=== PATIENT | female | born 1950 | race Caucasian/White ===

== ENCOUNTER 2019-03-02 21:10 | Emergency (ER) | payer MEDICARE, OTHER ==
[2019-03-02] MEDS ORDERED: Albuterol/Ipratropium 3.0-0.5 MG/3 ML Neb Soln NEB ONE (21:36)
[2019-03-02 22:10] LABS: CARBON DIOXIDE,CO2 28.6 mmol/L (21.0-32.0); POTASSIUM,K 2.9 mmol/L (3.5-5.1)
[2019-03-02] MEDS ORDERED: cefTRIAXone 1 GM in Premix Bag 1 BAG IV ONE (22:29)
[2019-03-02] MEDS ORDERED: methylPREDNISolone Sodium Succinate 125 MG/2 ML SDV IVPUSH ONE (22:29)
[2019-03-02] MEDS ORDERED: Sodium Chloride 0.9% 1,000 ML IV ONE (22:29)
[2019-03-02] MEDS ORDERED: Ondansetron 4 MG/2 ML SDV IVPUSH ONE (22:30)
[2019-03-02] MEDS ORDERED: Potassium Chloride Riders 20 MEQ in Premix Bag 1 BAG IV ONE (22:32)
--- NOTE | 2019-03-02 22:50 | CR ---
INDICATION: For 3 days. COMPARISON: None available. FINDINGS: PA and lateral views of the chest were obtained. The lungs are clear. No focal or diffuse infiltrates are present. The heart is normal in size. The mediastinum is normal in appearance. There is mild anterior wedging of the T12 vertebral body consistent with an old mild compression fracture. There is minimal scoliosis of the inferior thoracic spine convex towards the left. Incidental note is made of a mild pectus excavatum deformity. IMPRESSION: No active disease seen in the chest. Dictated by Arron Dasilva MD @ Mar 02 2019 10:47PM Signed by Dr. Arron Dasilva @ Mar 02 2019 10:48PM
--- NOTE | 2019-03-02 22:54 | EDM.PDOC ---
ED HPI GENERAL MEDICAL PROBLEM - General Chief Complaint: General Stated Complaint: COUGH Time Seen by Provider: 03/02/19 21:24 Source of Information: Reports: Patient History Limitations: Reports: No Limitations - History of Present Illness INITIAL COMMENTS - FREE TEXT/NARRATIVE: HISTORY AND PHYSICAL: History of present illness: Patient is a 68-year-old female who presents to the ED today with concern of cough, malaise, nausea x 3 days. Patient states initially about a week ago she had nasal congestion which she feels has now moved down to her lungs. Patient states she does smoke about a pack a day and has so for 50-60 years. Patient states starting today she had noticed a increase in how tired she is alongside the cough. Patient states she has felt like she's had some fevers at home but has not checked her temperature. Patient states she has not been able to eat and drink per her usual since the onset of the cough as she has also had associative nausea with it. Patient states she also has chronic issues with urinary tract infection and noticed a few days ago she was also developing some burning with urination an increase in urinary frequency which is typical of her frequent UTI symptoms. Patient denies any back pain. Patient has a history of htn, frequent UTI, and osteoarthritis but denies any other health history. Patient denies chills, chest pain, shortness of breath. Denies headache, neck stiff ness, change in vision, syncope, or near syncope. Denies vomiting, abdominal pain, diarrhea, constipation. Has not noted any blood in urine or stool. Review of systems: As per history of present illness and below otherwise all systems reviewed and negative. Past medical history: As per history of present illness and as reviewed below otherwise noncontributory. Surgical history: As per history of present illness and as reviewed below otherwise noncontributory. Social history: See social history for further information Family history: As per history of present illness and as reviewed below otherwise noncontributory. Physical exam: General: Patient is alert, oriented, and in no acute distress. Patient laying comfortably on exam table and moderately tired appearing. HEENT: Atraumatic, normocephalic, pupils equal and reactive bilaterally, negative for conjunctival pallor or scleral icterus, mucous membranes dry, TMs normal bilaterally, throat clear, neck supple, nontender, trachea midline. No drooling or trismus noted. No meningeal signs. No hot potato voice noted. Lungs: Wheezing to auscultation of bilateral lung bases, breath sounds equal bilaterally, chest nontender. Paroxysmal dry cough illicit on exam. Heart: S1S2, regular rate and rhythm with grade 2-3 systolic ejection murmur best heard at the LUSB. Abdomen: Soft, nondistended, nontender. Negative for masses or hepatosplenomegaly. Negative for costovertebral tenderness. Pelvis: Stable nontender. Genitourinary: Deferred. Rectal: Deferred. Skin: Intact, warm, dry. No lesions or rashes noted. Extremities: Atraumatic, negative for cords or calf pain. Neurovascular unremarkable. Neuro: Awake, alert, oriented. Cranial nerves II through XII unremarkable. Cerebellum unremarkable. Motor and sensory unremarkable throughout. Exam nonfocal. Notes: Offered admission for observation but patient declines at this time. Patient does get nausea when taking antibiotics so will give zofran. Although never formally diagnosed with COPD, she does appear to have clinical signs of COPD on exam. Will treat for urinary tract infection as well as COPD. Will get a week's worth supply of potassium and discussed with patient the need to follow -up with the primary care in order to have this further evaluated. Discussed other lab findings with patient and need for follow up with primary care provider. Voices understanding and is agreeable to plan of care. Denies any further questions or concerns at this time. Diagnostics: CBC, CMP, UA, EKG, CXR 2 view, urine culture Therapeutics: NS, Duoneb, Rocephin, Solumedrol, K-rider Prescription: Zofran, Macrobid, Medrol dose pack, ProAir inhaler, Zpack, Potassium Impression: COPD exacerbation Urinary Tract Infection Hypokalemia Dehydration Elevated renal function tests Plan: 1. Take medications as prescribed. You can alternate ibuprofen and Tylenol as directed for pain and discomfort. 2. Follow-up with your primary care provider for follow up labwork as discussed. Return to the ED as needed and as discussed. Definitive disposition and diagnosis as appropriate pending reevaluation and review of above. chest;head Pain Score (Numeric/FACES): 5 - Related Data Allergies Allergy/AdvReac Type Severity Reaction Status Date / Time Penicillins Allergy Cannot Verified 03/02/19 21:30 Remember Home Meds: Home Meds Chlorthalidone 1 tab PO DAILY 03/02/19 [History] Desvenlafaxine [Desvenlafaxine ER] 1 tab PO DAILY 03/02/19 [History] Diltiazem [Dilacor XR] 1 cap PO DAILY 03/02/19 [History] Gabapentin [Neurontin] 1 tab PO TID 03/02/19 [History] Losartan [Cozaar] 1 tab PO DAILY 03/02/19 [History] atorvaSTATin [Lipitor] 1 tab PO BEDTIME 03/02/19 [History] Past Medical History Cardiovascular History: Reports: High Cholesterol, Hypertension [employer] History: Reports: Psychiatric History: Reports: Anxiety, Depression - Past Surgical History Neurological Surgical History: Reports: Other (See Below) Other Neurological Surgeries/Procedures: brain sx Musculoskeletal Surgical History: Reports: Hip Replacement Social & Family History - Family History Family Medical History: Noncontributory - Tobacco Use Smoking Status *Q: Current Every Day Smoker Years of Tobacco use: 30 Packs/Tins Daily: 1 - Recreational Drug Use Recreational Drug Use: No ED ROS GENERAL - Review of Systems Review Of Systems: ROS reveals no pertinent complaints other than HPI. ED EXAM, GENERAL - Physical Exam Exam: See Below (See dictation) Course - Vital Signs Last Recorded V/S: Last Vital Signs Temp 35.9 C 03/02/19 21:20 Pulse 110 H 03/02/19 21:20 Resp 18 03/02/19 21:20 BP 124/67 03/02/19 21:20 Pulse Ox 94 L 03/02/19 21:20 - Orders/Labs/Meds Orders: Active Orders 24 hr Category Date Time Status EKG Documentation Completion [RC] STAT Care 03/02/19 21:36 Active RT Aerosol Therapy [RC] ASDIRECTED Care 03/02/19 21:36 Active CULTURE URINE [RM] Stat Lab 03/02/19 21:37 Received UA W/MICROSCOPIC [URIN] Stat Lab 03/02/19 21:37 Results Potassium Chloride Riders [KCL 20 MEQ in Water 50 ML] Med 03/02/19 22:32 Active 20 meq Premix Bag 1 bag IV ONETIME Medication Orders Potassium Chloride 20 meq/ (Premix) 50 mls @ 25 mls/hr IV ONETIME ONE Stop: 03/03/19 00:31 Last Admin: 03/02/19 22:59 Dose: 25 mls/hr Labs: Laboratory Tests 03/02/19 03/02/19 03/02/19 Range/Units 21:37 21:41 21:41 WBC 11.10 H (4.0-11.0) K/uL RBC 3.90 L (4.30-5.90) M/uL Hgb 12.5 (12.0-16.0) g/dL Hct 36.2 (36.0-46.0) % MCV 92.8 (80.0-98.0) fL MCH 32.1 H (27.0-32.0) pg MCHC 34.5 (31.0-37.0) g/dL RDW Std Deviation 42.4 (28.0-62.0) fl RDW Coeff of [place] 13 (11.0-15.0) % Plt Count 315 (150-400) K/uL MPV 8.40 (7.40-12.00) fL Neut % (Auto) 70.2 (48.0-80.0) % Lymph % (Auto) 18.2 (16.0-40.0) % [place] % (Auto) 9.4 (0.0-15.0) % Eos % (Auto) 2.0 (0.0-7.0) % Baso % (Auto) 0.2 (0.0-1.5) % Neut # (Auto) 7.8 H (1.4-5.7) K/uL Lymph # (Auto) 2.0 (0.6-2.4) K/uL [place] # (Auto) 1.0 H (0.0-0.8) K/uL Eos # (Auto) 0.2 (0.0-0.7) K/uL Baso # (Auto) 0.0 (0.0-0.1) K/uL Sodium 135 L (136-145) mmol/L Potassium 2.9 L (3.5-5.1) mmol/L Chloride 98 (98-107) mmol/L Carbon Dioxide 28.6 (21.0-32.0) mmol/L BUN 22 H (7.0-18.0) mg/dL Creatinine 1.2 H (0.6-1.0) mg/dL Est Cr Clr Drug Dosing 37.67 mL/min Estimated GFR (MDRD) 44.4 ml/min Glucose 130 H (74-106) mg/dL Calcium 9.4 (8.5-10.1) mg/dL Total Bilirubin 0.4 (0.2-1.0) mg/dL AST 19 (15-37) IU/L ALT 27 (14-63) IU/L Alkaline Phosphatase 94 (46-116) U/L Total Protein 7.3 (6.4-8.2) g/dL Albumin 3.4 (3.4-5.0) g/dL Globulin 3.9 (2.6-4.0) g/dL Albumin/Globulin Ratio 0.9 (0.9-1.6) Urine Color DARK YELLOW Urine Appearance SLT CLOUDY Urine pH 6.5 (5.0-8.0) Ur Specific [place] 1.015 (1.001-1.035) Urine Protein 30 H (NEGATIVE) mg/dL Urine Glucose (UA) 100 H (NEGATIVE) mg/dL Urine Ketones TRACE H (NEGATIVE) mg/dL Urine Occult Blood SMALL H (NEGATIVE) Urine Nitrite POSITIVE H (NEGATIVE) Urine Bilirubin SMALL H (NEGATIVE) Urine Urobilinogen 4.0 H (<2.0) EU/dL Ur Leukocyte Esterase NEGATIVE (NEGATIVE) Meds: Medications Generic Name Dose Route Start Last Admin Trade Name Freq PRN Reason Stop Dose Admin Potassium Chloride 20 meq/ 50 mls @ 25 mls/hr 03/02/19 22:32 03/02/19 22:59 Premix IV 03/03/19 00:31 25 mls/hr ONETIME ONE Administration Discontinued Medications Generic Name Dose Route Start Last Admin Trade Name Freq PRN Reason Stop Dose Admin Albuterol/Ipratropium 3 ml 03/02/19 21:36 03/02/19 21:47 Duoneb 3.0-0.5 Mg/3 Ml NEB 03/02/19 21:37 3 ml ONETIME ONE Administration Sodium Chloride 1,000 mls @ 999 mls/hr 03/02/19 22:29 03/02/19 22:53 Normal Saline IV 03/02/19 23:29 999 mls/hr STAT ONE Administration Ceftriaxone Sodium/Dextrose 1 50 mls @ 100 mls/hr 03/02/19 22:29 03/02/19 22: 53 gm/ Premix IV 03/02/19 22:58 100 mls/hr ONETIME ONE Administration Methylprednisolone Sodium Succinate 125 mg 03/02/19 22:29 03/02/19 22:47 Solu-Medrol IVPUSH 03/02/19 22:30 125 mg ONETIME ONE Administration Ondansetron HCl 4 mg 03/02/19 22:30 03/02/19 22:47 Zofran IVPUSH 03/02/19 22:31 4 mg ONETIME ONE Administration Departure - Departure Time of Disposition: 23:41 Disposition: Home, Self-Care 01 Clinical Impression: COPD exacerbation, Hypokalemia, Dehydration, Renal function test abnormal Urinary tract infection Qualifiers: Urinary tract infection type: acute cystitis Hematuria presence: with hematuria Qualified Code(s): N30.01 - Acute cystitis with hematuria - Discharge Information Referrals: PCP,None [Primary Care Provider] - Forms: ED Department Discharge Additional Instructions: The following information is given to patients seen in the emergency department who are being discharged to home. This information is to outline your options for follow-up care. We provide all patients seen in our emergency department with a follow-up referral. The need for follow-up, as well as the timing and circumstances, are variable depending upon the specifics of your emergency department visit. If you don't have a primary care physician on staff, we will provide you with a referral. We always advise you to contact your personal physician following an emergency department visit to inform them of the circumstance of the visit and for follow-up with them and/or the need for any referrals to a consulting specialist. The emergency department will also refer you to a specialist when appropriate. This referral assures that you have the opportunity for follow-up care with a specialist. All of these measure are taken in an effort to provide you with optimal care, which includes your follow-up. Under all circumstances we always encourage you to contact your private physician who remains a resource for coordinating your care. When calling for follow-up care, please make the office aware that this follow-up is from your recent emergency room visit. If for any reason you are refused follow-up, please contact the [facility] at and asked to speak to the emergency department charge nurse. [facility] [address] [place] [address] [facility] [address] [place] [address] 1. Take medications as prescribed. You can alternate ibuprofen and Tylenol as directed for pain and discomfort. 2. Follow-up with your primary care provider for follow up labwork as discussed. Return to the ED as needed and as discussed. - My Orders Last 24 Hours: My Active Orders 03/02/19 21:36 EKG Documentation Completion [RC] STAT RT Aerosol Therapy [RC] ASDIRECTED 03/02/19 21:37 CULTURE URINE [RM] Stat UA W/MICROSCOPIC [URIN] Stat 03/02/19 22:32 Potassium Chloride Riders [KCL 20 MEQ in Water 50 ML] 20 meq Premix Bag 1 bag IV ONETIME - Assessment/Plan Last 24 Hours: My Active Orders 03/02/19 21:36 EKG Documentation Completion [RC] STAT RT Aerosol Therapy [RC] ASDIRECTED 03/02/19 21:37 CULTURE URINE [RM] Stat UA W/MICROSCOPIC [URIN] Stat 03/02/19 22:32 Potassium Chloride Riders [KCL 20 MEQ in Water 50 ML] 20 meq Premix Bag 1 bag IV ONETIME
== END 2019-03-03 01:38 | disposition home or self-care (01) ==
LOC: MW.ED 21:10
DX: J44.1 Chronic obstructive pulmonary disease with (acute) exacerbation (principal); N30.01 Acute cystitis with hematuria; E87.6 Hypokalemia; E86.0 Dehydration; R94.4 Abnormal results of kidney function studies; I10 Essential (primary) hypertension; E78.00 Pure hypercholesterolemia, unspecified; F41.9 Anxiety disorder, unspecified; F32.9 Major depressive disorder, single episode, unspecified; F17.210 Nicotine dependence, cigarettes, uncomplicated; Z79.899 Other long term (current) drug therapy; Z88.0 Allergy status to penicillin
CPT/HCPCS: 36415; 71046; 80053; 81001; 85025; 87086; 93005; 94640; 96365; 96366; 96367; 96375; 99284; J0696; J2405; J2930; J3480; J7040; J7620-GY